=== PATIENT | female | born 1955 | race Two or more races ===

== ENCOUNTER 2016-09-10 07:01 | Day surgery (SDC) | payer OTHER ==
[2016-08-19 13:55] VITALS: BMI 27.0
[2016-09-10] VITALS (9 sets, daily range): BP systolic 116–161; BP diastolic 69–84; PULSE 16–82; RESP 16–18; Ht 157.5 cm; Wt 66.0 kg
[~2016-09-10] VITALS: Ht 157.5 cm; Wt 66.0 kg
[~2016-09-10 07:01] MED LIST: CEFAZOLIN 1 GM INJ ONE; CEFAZOLIN 2 GM/50 ML (PMX) 50 ML IVPB ONE; SOD CHLORIDE 0.9% 1,000 ML IV SCH; SUCCINYLCHOLINE CHLORIDE 100 MG/5 ML SYG IV ONE
[2016-09-10] MEDS ORDERED: CEFAZOLIN 2 GM/50 ML (PMX) 50 ML IVPB ONE (07:30)
[2016-09-10] MEDS ORDERED: SOD CHLORIDE 0.9% 1,000 ML IV SCH (07:30)
--- NOTE | 2016-09-10 08:55 | RADRPT ---
PROCEDURE: XR Chest. CLINICAL INDICATION: Preop TECHNIQUE: PA and Lateral views of the chest were obtained. COMPARISON: None. FINDINGS: The cardiomediastinal silhouette is within normal limits of size .. The lungs are clear without pl eural effusion or focal consolidation. No pneumothorax. The osseous structures and soft tissues are unremarkable. IMPRESSION: 1. No evidence for active cardiopulmonary disease. RPTAT:AAJJ Physician Gissel Date Time Electronically viewed and signed by Da Foote Physician on 09/10/2016 08:55 IE/
[2016-09-10 09:06] LABS: ADD SCAN DIFF NO
[2016-09-10 09:09] LABS: BASOPHILS % 0.5 % (0.0-2.0); EOSINOPHILS # 0.1 10^3/ul (0.0-0.5); EOSINOPHILS % 1.2 % (0.0-7.0); HEMATOCRIT 39.9 % (37.0-47.0); HEMOGLOBIN 12.7 g/dl (12.0-16.0); LYMPHOCYTES # 1.2 10^3/ul (0.8-2.9); LYMPHOCYTES % 18.2 % (15.0-51.0); MEAN CORPUSCULAR HEMOGLOBIN 29.6 pg (29.0-33.0); MEAN CORPUSCULAR HGB CONC 31.8 g/dl (32.0-37.0); MONOCYTE # 0.5 10^3/ul (0.3-0.9); MONOCYTES % 6.9 % (0.0-11.0); NEUTROPHIL # 4.8 10^3/ul (1.6-7.5); NEUTROPHILS % 72.9 % (39.0-77.0); PLATELET COUNT 223 10^3/UL (140-415); RED BLOOD COUNT 4.29 10^6/ul (4.20-5.40); RED CELL DISTRIBUTION WIDTH 13.2 % (11.5-14.5); WHITE BLOOD COUNT 6.6 10^3/ul (4.8-10.8)
[2016-09-10 09:20] LABS: POTASSIUM 3.7 mmol/L (3.5-5.1)
[2016-09-10 09:22] LABS: INR 0.92; PARTIAL THROMBOPLASTIN TIME 29.2 Sec (25.0-35.0); PROTIME 12.4 Sec (12.2-14.2)
[2016-09-10 09:30] LABS: CALCIUM 9.1 mg/dl (8.4-10.2); CREATININE 0.56 mg/dl (0.44-1.00)
[2016-09-10] MEDS ORDERED: FENTAnyl 50 MCG/ML VIAL ONE (10:29)
[2016-09-10] MEDS ORDERED: PROPOFOL 20 ML ONE (10:29)
[2016-09-10] MEDS ORDERED: LIDOCAINE 2% (SDV) 5 ML INJ ONE (10:29)
[2016-09-10] MEDS ORDERED: BUPIVACAINE 0.5%/EPI (SDV) 30 ML INJ ONE (10:53)
[2016-09-10] MEDS ORDERED: METOCLOPRAMIDE 10 MG INJ IV PRN (11:00)
[2016-09-10] MEDS ORDERED: ONDANSETRON 4 MG INJ IV PRN (11:00)
[2016-09-10] MEDS ORDERED: FENTAnyl 50 MCG/ML VIAL IV PRN (11:00)
[2016-09-10] MEDS ORDERED: MEPERIDINE 25 MG INJ IV PRN (11:00)
[2016-09-10] MEDS ORDERED: HYDROmorphONE (0.2 MG/ML) 10ML SYG IV PRN ×3 (11:00)
[2016-09-10] MEDS ORDERED: DIPHENHYDRAMINE 50 MG INJ IV PRN (11:00)
[2016-09-10] MEDS ORDERED: BUPIVACAINE 0.5%/EPI (SDV) 30 ML INJ INJ ONE (11:04)
--- NOTE | 2016-09-10 12:00 | OPR ---
DATE OF OPERATION: 09/10/2016 POSTOPERATIVE DIAGNOSIS: Recurrent malignant melanoma, sole of the right foot. POSTOPERATIVE DIAGNOSIS: Recurrent malignant melanoma, sole of the right foot. PROCEDURE PERFORMED: Wide local excision of malignant melanoma, sole of right foot. SURGEON: Juvention Putnam MD HVAC DESIGN ENGINEER: Diomedes Acevedo MD ANESTHESIA: General. ANESTHESIOLOGIST: Berlin Ceron MD INDICATIONS FOR PROCEDURE: The patient is an unfortunate 61-year-old female who presented with a pi gmented lesion on the sole of right foot approximately 8 years ago. She underwent wide local excisi on at an outside institution. Over the last several months, she has developed evidence of recurrenc e. She was evaluated in my office and found to have an ulcerated large pigmented lesion at least 2 to 3 cm in diameter and several satellite pigmented lesions covering a total diameter of at least 5 cm. She was counseled as to need for excision and probable skin grafting. She was seen by attendco g plastic surgeon, Dr. Abhijit Cadena, who recommended a staged procedure, where she would first unde rgo wide local excision and attempt to get clear margins and in a delayed fashion undergo skin graft ing or skin flap placement. She consented to this procedure and was scheduled for surgery. DESCRIPTION OF PROCEDURE: The patient was brought to the operating theater, placed under general en dotracheal tube anesthesia. The right foot and ankle was prepped and draped in usual sterile fashio n. Dr. Putnam demarcated a planned incision with a marking pen widely around the lesion including th e satellite areas of abnormal skin pigmentation. Incision was then carried out with 15 blade scalpe l and the deeper tissue was transected with cautery. The entire area was then resected off of the d eep subcutaneous tissue. The specimen was removed and oriented. It appeared that in the central po rtion that the margin would be very close therefore, additional deep margin tissue was resected and sent separately for pathologic analysis. The wound was then irrigated. Minimal bleeding was contro lled with cautery and the area was infiltrated with 0.5% Marcaine local anesthetic with epinephrine. A wet-to-dry dressing was then applied and the foot was wrapped with gauze. The patient tolerated the procedure well. The estimated blood loss was 20 mL. There were no complications and the patie nt was transported in stable condition to the recovery room. Dictated By: JUVENTINO CAGE/RONIT Conf#: [id number] DID#: [id number]
--- NOTE | 2016-09-11 14:56 | RADRPT ---
Vent Rate: 70 bpm RR Interval: 0 msec MI Interval: 122 msec QRS Duration: 84 msec QT Interval: 392 msec QTC Interval: 423 msec P-R-T Eros: 14 - 50 - 11 degrees Normal sinus rhythm Normal ECG No previous tracing available for comparison Electronically Signed By: Yoshi العراقي [id number]
== END 2016-09-10 13:35 | disposition home or self-care (01) ==
LOC: SDS 07:01
PROVIDERS: ATTEND Surgery Surgical Oncology
DX: C43.71 Malignant melanoma of right lower limb, including hip (principal)
CPT/HCPCS: 28039; 71010; 80048; 85025; 85610; 85730; 88304; 88313; 93005; J0330; J0690; J3010; L3260; Z7512; Z7610; J7999